=== PATIENT | female | born 1945 | race Caucasian/White ===

== ENCOUNTER 2017-11-13 11:49 | Emergency (ER) | payer OTHER ==
[~2017-11-13] VITALS: Ht 160 cm; Wt 61.1 kg
[~2017-11-13 11:49] MED LIST: ASPIRIN325 MG PO; BLOOD PRESSURE MED; LEVOTHYROXINE100 MCG PO
[2017-11-13 12:24] LABS: APPEARANCE CLOUDY ((CLEAR)); BILIRUBIN NEGATIVE; BLOOD LARGE; COLOR YELLOW ((YELLOW)); GLUCOSE (STRIP) NEGATIVE; KETONES NEGATIVE; LEUKOCYTES LARGE; NITRITE NEGATIVE; PROTEIN (STRIP) 30; SPECIFIC GRAVITY 1.011 (1.000-1.030); UROBILINOGEN 0.2 MG/DL (0.2-1.0)
[2017-11-13 12:45] LABS: RED BLOOD CELLS TNTC /HPF (0-5); WHITE BLOOD CELLS TNTC /HPF (0-5)
[2017-11-13 12:46] LABS: BACTERIA 1+ /HPF; EPITHELIAL CELLS RARE /HPF; MUCUS NONE SEEN /LPF; UCUL ADDED? YES
[2017-11-13 12:52] LABS: HEMOGLOBIN 14.7 G/DL (11.9-15.5); MCH 33.1 PG (29.0-34.0); MCHC 35.9 G/DL (30.0-36.0); MCV 92.3 FL (83-99); PLATELET COUNT 217 K/uL (156-360); RBC DIS.WIDTH-SD 40.5 % (39-53); RED BLOOD COUNT 4.44 M/uL (3.80-5.20); WHITE BLOOD COUNT 15.9 K/uL (4.1-10.2)
[2017-11-13 13:09] LABS: ALBUMIN 4.6 g/dL (3.2-4.8); CHLORIDE 103 mEq/L (99-109); POTASSIUM 3.8 mEq/L (3.7-5.4); SODIUM 141 mEq/L (136-147)
[2017-11-13 13:12] LABS: GLUCOSE 102 mg/dL (70-99); TOTAL PROTEIN 7.4 g/dL (6.4-8.3)
[2017-11-13 13:13] LABS: TOTAL BILIRUBIN 0.7 mg/dL (0.0-1.0)
[2017-11-13 13:15] LABS: ALKALINE PHOSPHATASE 77 IU/L (3-129); CREATININE 1.1 mg/dL (0.6-1.3); GFR ESTIMATE (CALCULATED) 52 mL/min/
[2017-11-13 13:16] LABS: UREA NITROGEN (BUN) 13 mg/dL (9-23)
[2017-11-13 13:17] LABS: AST (GOT) 24 IU/L (2-34)
[2017-11-13 13:18] LABS: ALT (GPT) 22 IU/L (3-49)
[2017-11-13] MEDS ORDERED: CIPRO500 MG PO (14:32)
[2017-11-13 14:46] VITALS: BP 155/76
== END 2017-11-13 14:47 | disposition home or self-care (01) ==
LOC: EME 11:49
DX: N30.91 Cystitis, unspecified with hematuria (principal); I10 Essential (primary) hypertension; Z79.82 Long term (current) use of aspirin; Z86.73 Personal history of transient ischemic attack (TIA), and cerebral infarction without residual deficits; F17.200 Nicotine dependence, unspecified, uncomplicated
CPT/HCPCS: 80053; 81003; 85027; 87077; 87086; 87186